=== PATIENT | male | born 1955 | race Caucasian/White ===

== ENCOUNTER → 2016-04-23 | Outpatient (CLI) | payer OTHER ==
[~2016-04-23] MED LIST: ASPI-664 PO; CARV12.579 PO; LISI20TA11 PO; MELO-110 PO
== END | disposition home or self-care (01) ==
LOC: HKI 08:54
PROVIDERS: ATTEND Orthopaedic Surgery
DX: M17.12 Unilateral primary osteoarthritis, left knee (principal); S72.302 Unspecified fracture of shaft of left femur; S82.102 Unspecified fracture of upper end of left tibia; X58.XXXD Exposure to other specified factors, subsequent encounter
CPT/HCPCS: G0463

== ENCOUNTER → 2016-06-16 | Outpatient (CLI) | payer OTHER ==
--- NOTE | 2016-06-16 14:13 | RADRPT ---
PROCEDURE: Limited x-ray of both lower extremities. CLINICAL INDICATION: Bilateral leg pain. TECHNIQUE: Single frontal view of both lower extremities was obtained from the hips to the calves. COMPARISON: 06/27/2015. 08/08/2015. FINDINGS: There is an intramedullary tc in the left femur which is fractured superiorly and migrated superior ly into the soft tissues adjacent to the left acetabulum. This is unchanged from 06/27/2015 and 07/26. There is an old healed fracture of the shaft of the femur. There is no new fracture. The hip s are otherwise unremarkable. There are severe degenerative changes of the left knee with joint spac e narrowing, osteophytes, and deformity. There are old healed fractures of the proximal shafts of th e left tibia and fibula. IMPRESSION: 1. Unchanged appearance of fractured tc in the left femoral shaft. 2. Healed fractures of the midshaft of the left femur, proximal left tibia, and proximal left fibula . 3. Severe degenerative changes of the left knee. 4. No change from 06/27/2015 and 08/08/2015. RPTAT: QQ .Lazarus Gomez MD, Date Time Electronically viewed and signed by .Lazarus Gomez MD, on 06/16/2016 14:12 .R/
== END | disposition home or self-care (01) ==
LOC: HKI 09:45
PROVIDERS: ATTEND Orthopaedic Surgery
DX: M25.562 Pain in left knee (principal); M17.12 Unilateral primary osteoarthritis, left knee; S72.302S Unspecified fracture of shaft of left femur, sequela
CPT/HCPCS: 77073; Z7500; G0463

== ENCOUNTER 2016-06-22 09:46 | Inpatient (IN) | payer MEDICARE, OTHER ==
[~2016-06-22] VITALS: Ht 157.5 cm; Wt 106.0 kg
[2016-06-22] VITALS (22 sets, daily range): BP systolic 135–177; BP diastolic 65–82; PULSE 55–94; RESP 16–22; Ht 157.5 cm; Wt 106.0 kg
[~2016-06-22 09:46] MED LIST changes: +BUPIVACAINE LIPOSOME/PF 266 MG/20 ML VIAL INFIL SCH; +CEFAZOLIN 1 GM INJ ONE; +CEFAZOLIN 2GM/50 ML (PMX) 50 ML X1 BEFORE INCISION IVPB SCH; +CELECOXIB 400 MG PO X1 DOSE PO SCH; +ETOMIDATE 20 MG INJ ONE; +EXPAREL NOTE (BUPIVICAINE LIPOSOMAL) XX SCH; +LACTATED RINGER'S 1,000 ML IV SCH; +PAIN COCKTAIL-CEFUROXIME IRR SCH; +PREGABALIN 300 MG PO X1 PO SCH; +SOD CHLORIDE 0.9% IV SCH; +SOD CHLORIDE 0.9% IVPB SCH; +SUCCINYLCHOLINE CHLORIDE 100 MG/5 ML SYG IV ONE; +TRANEXAMIC ACID IV SCH; +TRANEXAMIC ACID IVPB SCH; +oxyCODONE (CR) 10 MG TAB [oxyCONTIN] X1 DOSE PO SCH; +traMADOL 50 MG TAB X 1 DOSE PO SCH
[2016-06-22] MEDS ORDERED: OMEP20CA16 PO (10:32)
[2016-06-22] MEDS ORDERED: CARV12.598 PO (10:42)
[2016-06-22] MEDS ORDERED: DEXAMETHASONE 4 MG/ML 1 ML INJ ONE (11:19)
[2016-06-22] MEDS ORDERED: ONDANSETRON 4 MG INJ ONE (11:19)
[2016-06-22] MEDS ORDERED: CEFAZOLIN 1 GM INJ ONE (11:19)
[2016-06-22] MEDS ORDERED: PROPOFOL 100 ML ONE (11:19)
[2016-06-22] MEDS ORDERED: MIDAZOLAM 1 MG/ML 2 ML INJ ONE (11:19)
[2016-06-22] MEDS ORDERED: FENTAnyl 50 MCG/ML VIAL ONE ×2 (11:19→18:15)
[2016-06-22] MEDS ORDERED: PROPOFOL 0 ML ONE (11:19)
[2016-06-22] MEDS ORDERED: GLYCOPYRROLATE 0.4 MG INJ ONE (11:19)
[2016-06-22] MEDS ORDERED: NEOSTIGMINE 3 MG/3 ML SYRINGE ONE (11:19)
[2016-06-22] MEDS ORDERED: ROCURONIUM 50 MG INJ ONE (11:19)
--- NOTE | 2016-06-22 13:13 | HPN ---
Date/Time of Note Date/Time of Note DATE: 06/22/16 TIME: 13:12 Interval H&P Admission Note Pt. seen H&P reviewed: No system changes No change from H&P on 06/15/16 by ARMANDO Carmona MD Jun 22, 2016 13:13
--- NOTE | 2016-06-22 13:38 | OPR ---
Date/Time of Note Date/Time of Note DATE: 06/22/16 TIME: 13:37 Operative Report Free Text/Dictation Dictation # [id number] Procedure Date: Jun 22, 2016 Preoperative Diagnosis Left Hip OA Postoperative Diagnosis Same Operation Performed Left Anterior МАРИНА Surgeon: ARMANDO ALARCON MD purchasing assistant: CHIP BAKER PA-C Anesthesia: general, spinal Anesthesiologist: Nathan Blanca M.D. Estimated Blood Loss: 250 - 300 ml's Specimens Femoral Head Tubes/Drains Hemovac x 1 Complications: None Pt Condition Post Procedure: stable Disposition: PACU ARMANDO ALARCON MD Jun 22, 2016 13:38
[2016-06-22] MEDS ORDERED: CITRIC ACID/NA CITRATE 30 ML CUP ONE (13:47)
[2016-06-22] MEDS ORDERED: SODIUM CL BACTERIOSTATIC 30 ML INJ ONE (13:53)
[2016-06-22] MEDS ORDERED: POLYMYXIN B 500000 UNIT INJ ONE ×2 (13:53→13:54)
[2016-06-22] MEDS ORDERED: VANCOMYCIN 1 GM INJ ONE ×2 (13:54→15:21)
[2016-06-22] MEDS ORDERED: CITRIC ACID/NA CITRATE 30 ML CUP PO ONE (14:00)
[2016-06-22] MEDS ORDERED: TRIMETHOBENZAMIDE 100 MG/ML VIAL IM PRN (15:00)
[2016-06-22] MEDS ORDERED: DIPHENHYDRAMINE 50 MG INJ IV PRN (15:00)
[2016-06-22] MEDS ORDERED: HYDROmorphONE (0.2 MG/ML) 10ML SYG IV PRN ×3 (15:00)
[2016-06-22] MEDS ORDERED: MEPERIDINE 25 MG INJ IV PRN (15:00)
[2016-06-22] MEDS ORDERED: MIDAZOLAM 1 MG/ML 2 ML INJ IV PRN (15:00)
[2016-06-22] MEDS ORDERED: FENTAnyl 50 MCG/ML VIAL IV PRN ×3 (15:00)
[2016-06-22] MEDS ORDERED: ONDANSETRON 4 MG INJ IV PRN ×2 (15:00→19:30)
[2016-06-22] MEDS ORDERED: EPHEDrine SULFATE 50 MG/5 ML SYG IV PRN (15:00)
[2016-06-22] MEDS ORDERED: LABETALOL HCL 20MG INJ IV PRN (15:00)
[2016-06-22] MEDS ORDERED: hydrALAzine 20 MG INJ IV PRN (15:00)
[2016-06-22] MEDS ORDERED: BACITRACIN 50000 UNITS INJ ONE (15:03)
[2016-06-22] MEDS ORDERED: TOBRAMYCIN 1.2 GM POWDER ONE (15:21)
[2016-06-22] MEDS: VANCOMYCIN 1 GM INJ ONE ×2 (16:20→17:23)
--- NOTE | 2016-06-22 19:12 | PN ---
Date/Time of Note Date/Time of Note DATE: 06/22/16 TIME: 19:09 Assessment/Plan Lines/Catheters IV Catheter Type (from Nrsg): Peripheral IV Assessment/Plan Assessment/Plan Stable in PACU, s/p left hip hardware removal, left TKA -continue antibiotics -pain meds as needed -ASA/SCDs for DVT prophylaxis -OOB with PT -place towel roll behind ankle to ensure complete knee extension -check AM labs -monitor drain -d/c douglas in AM XR of the left knee and left hip are pending at this time Subjective 24 Hr Interval Summary Stable in PACU. Moving all extremities. Denies pain. Drowsy from anesthesia. Exam/Review of Systems Vital Signs Vitals Vital Signs Date Time Temp Pulse Resp B/P Pulse Ox O2 Delivery O2 Flow Rate FiO2 06/22/16 10:46 98.3 55 18 177/77 99 Room Air Exam Free Text/Dictation Hip: Dressing dry Incision clean, dry, and intact without redness or drainage 5/5 Quadriceps, Tibialis Anterior, EHL, Gastroc, Soleus, Peroneals Normal sensation Palpable DT/PT, CR <2 sec No distal edema Knee: Hemovac: minimal Dressing dry Incision clean, dry, and intact without redness or drainage Thigh soft 5/5 Quadriceps, Tibialis Anterior, EHL, Gastroc, Soleus, Peroneals Normal sensation Palpable DT/PT, CR <2 sec No distal edema CHIP BAKER PA-C Jun 22, 2016 19:12
[2016-06-22 19:23] LABS: HEMATOCRIT 40.6 % (42.0-52.0); HEMOGLOBIN 13.7 g/dl (14.0-18.0)
[2016-06-22] MEDS ORDERED: BISACODYL 10 MG SUPP PR PRN (19:30)
[2016-06-22] MEDS ORDERED: MAGNESIUM HYDROXIDE 30ML CUP PO PRN (19:30)
[2016-06-22] MEDS ORDERED: HYDROmorphONE 1 MG/ML SYG IV PRN (19:30)
[2016-06-22] MEDS ORDERED: ASPIRIN (EC) 325 MG TAB PO ONE (19:30)
[2016-06-22] MEDS ORDERED: NA PHOSPHATE/BIPHOS 133 ML ENEMA PR PRN (19:30)
[2016-06-22] MEDS ORDERED: DIPHENHYDRAMINE 25 MG CAP PO PRN (19:30)
[2016-06-22] MEDS ORDERED: NACL 0.9% 3 ML SYG IV SCH (19:30)
[2016-06-22] MEDS ORDERED: oxyCODONE 5 MG TAB PO PRN (19:30)
[2016-06-22] MEDS: CEFAZOLIN 2 GM/50 ML (PMX) 50 ML IVPB SCH (19:46)
[2016-06-22] MEDS: LACTATED RINGER'S 1,000 ML IV SCH (19:52)
[2016-06-22] MEDS ORDERED: hydrALAzine 20 MG INJ ONE (19:56)
[2016-06-22 20:12] LABS: CALCIUM 8.5 mg/dl (8.4-10.2); CREATININE 0.71 mg/dl (0.61-1.24); POTASSIUM 3.5 mmol/L (3.5-5.1)
--- NOTE | 2016-06-22 21:35 | OPR ---
Date/Time of Note Date/Time of Note DATE: 06/22/16 TIME: 21:34 Operative Report Free Text/Dictation Dictation # [id number] Procedure Date: Jun 22, 2016 Preoperative Diagnosis 1) Broken hardware left femur 2) Left Knee OA Postoperative Diagnosis Same Operation Performed 1) Removal of HW left femur 2) Left TKA Surgeon: ARMANDO ALARCON MD trust manager assistant: CHIP BAKER PA-C Anesthesia: general, spinal Anesthesiologist: Nathan Blanca M.D. Estimated Blood Loss: 150 - 200 ml's Specimens Bone and soft tissue Tubes/Drains Hemovac x 1 Complications: None Pt Condition Post Procedure: stable Disposition: PACU ARMANDO ALARCON MD Jun 22, 2016 21:35
[2016-06-22] MEDS: DOCUSATE SODIUM 100 MG CAP PO SCH (22:23)
[2016-06-22] MEDS: PREGABALIN 25 MG CAP PO SCH (22:23)
[2016-06-22] MEDS ORDERED: TRANEXAMIC ACID 1,060 MG in SOD CHLORIDE 0.9% 100 ML IVPB ONE (22:30)
--- NOTE | 2016-06-22 22:32 | OPR ---
DATE OF OPERATION: 06/22/2016 PREOPERATIVE DIAGNOSES: 1. Broken hardware, left femur, status post previous intramedullary nailing with malunited femur fr acture. 2. Left knee osteoarthritis. POSTOPERATIVE DIAGNOSES: 1. Broken hardware, left femur, status post previous intramedullary nailing with malunited femur fr acture. 2. Left knee osteoarthritis. PROCEDURES: 1. Removal of hardware, left femur. 2. Left total knee arthroplasty. SURGEON: Armando Isabel MD JUNIOR MECHANICAL ENGINEER: JORGE Bass COMPONENTS USED: DePuy Attune size 5 femoral component, size 6 tibial baseplate, 10 mm polyethylene insert, 38 patellar button. ANESTHESIA: Spinal plus general endotracheal intubation plus periarticular injection. ANESTHESIOLOGIST: Dr. Blanca. TOURNIQUET TIME: 111 minutes. ESTIMATED BLOOD LOSS: 150 mL. INTRAVENOUS FLUIDS: 3500 mL crystalloid. SPECIMENS: Bone and soft tissue. DRAINS: Hemovac x1. COMPLICATIONS: None. DISPOSITION: The patient tolerated the procedure well and was taken to the recovery room in stable condition. INDICATIONS: The patient is a 61-year-old gentleman who had a previous femur fracture treated with an intramedullary nailing at another hospital. He went on to develop a malunion of the femur with p roximal migration of the tip of the tc and the tc broke at the tip and remained prominent, impingi ng on his left hip. He also developed severe osteoarthritis of the left knee. He has had worsening pain despite nonsurgical means of treatment. I felt he would benefit from removal of the broken ro d and then a total knee arthroplasty. The risks, benefits, alternatives of the procedure were expla ined in detail to the patient. I explained the risks to include but not be limited to bleeding and possible need for blood transfusion, infection, pain, stiffness, neurovascular injury, possible numb ness, weakness, and/or paralysis anywhere from the knee down to the toes, fracture, instability, dis location, leg length inequality, wear and/or loosening of the prosthesis, need for revision at a lat er date, wound healing problems, blood clots, pulmonary embolism, and anesthetic complications such as heart attack, stroke, GI bleed, pneumonia, and/or . Ample time was allowed for the patient to ask questions, all of which were addressed and answered. The patient understood the risks involv ed and wished to proceed. Informed consent was signed prior to the procedure. DESCRIPTION OF PROCEDURE: The left hip and left knee were initialed with a marking pen in the preop erative holding area to identify the correct operative site. The patient was then brought to the op erating room and transferred from the [facility] to the operating table where he was administer ed a spinal anesthetic and then anesthetized and intubated. Time out was performed to confirm the l eft side was the correct operative site. The patient was then turned to lateral decubitus position with the left side up. An axillary roll was placed under the right chest wall. He was secured to the pegboard and all bony prominences were well padded. The patient was given 2 grams of intravenous Ancef within 1 hour mark or to the incision. Left hip and lower extremity were prepped and draped in usual sterile fashion. A posterolateral incision was made over the greater trochanter and carried down to subcutaneous tiss ue and fat with sharp dissection incorporating a small previous scar that was used to place the nail . This was carried down to subcutaneous tissue and fat with sharp dissection. The iliotibial band and gluteus jake muscle fascia were incised along the length of the wound and the gluteus jake muscle fibers were bluntly split. There was a bursal sac that had formed around the prominent port ion of the protruding tc, which was incised. The broken piece of the proximal tc was removed. I then followed this track to the piriformis fossa and used the rongeur to rongeur away some heterotop ic bone. Under C-arm imaging, I was able to place a threaded device into the tip of the tc and shashank kslap it out of the femur. At this point, the wound was irrigated with antibiotic saline. C-arm im aging confirmed that all the hardware had been removed and the proximal femur was intact. A small p ortion of the abductors was repaired back to the greater trochanter through drill holes with #2 Fibe rWire. The sciatic nerve was palpated and noted to be intact with no undue tension. The wound was irrigated with antibiotic saline pulsatile lavage. The iliotibial band was repaired with interrupte d #1 Ethibonds in a figure-of-8 fashion. The gluteus jake muscle fascia was repaired with a runn ing #1 Vicryl. The deep fat layer was irrigated and closed with 2-0 Stratafix and 3-0 Vicryl, and s taples on the skin. Skin edges were sealed with Dermabond. The wound was covered with silver Mepil ex. The patient was then kept intubated and turned to the supine position. Tourniquet was placed o n the left proximal thigh. The patient was given an additional gram of Ancef. The left knee and lo wer extremity were prepped and draped in usual sterile fashion. Left lower extremity was elevated and exsanguinated with the Esmarch tourniquet and the proximal thi gh tourniquet was inflated to 300 mmHg. The knee was flexed. A midline incision was made centered over the patella. The skin down to the subcutaneous tissue and fat with sharp dissection. Limited medial and lateral flaps were raised. Medial parapatellar arthrotomy was performed. Synovial fluid was normal in color and consistency. The patella was everted and the knee was flexed. A medial re lease was performed at the joint line to the midcoronal plane. There was severe osteoarthritis note d with complete loss of cartilage in the medial and patellofemoral compartments. At this point, the OrthAlign navigation device was brought up into the field and pinned into the distal femur. I felt that it would be in his best interest to use navigation, because it would be not possible to pass a n intramedullary guide up the femoral canal. The OrthAlign was pinned into place for a 3 degree fle xion cut and sagittal plans and 0 degrees of varus and valgus in the coronal plane. This was pinned into place to take 11 mm off distally. The oscillating saw was used to make the cut. Attention wa s then turned towards the proximal tibia, which was subluxed anteriorly. The lateral and medial men isci were removed. The ACL and PCL had been excised. There was noted to be a marked deformity of t he proximal tibia from previous malunited fracture in the proximal tibia, such that there was a disc repancy in terms of the rotation of the proximal articular aspect of the tibia relative to the ankle . The OrthAlign device was not be able to be used because to register the lateral and medial malleo li would not be possible with the rotational deformity present. Therefore, I elected to use an extr amedullary device. This was pinned into place proximally centered over the junction of the medial m iddle third of the tibial tubercle and then was brought over the anterior tibial crest. C-arm imagi ng confirmed it was centered over the ankle distally and in good alignment proximally. This was pin carlota into place and the oscillating saw was used to make the cut. I then sized the tibia to be a siz e 6. The flexion gap was checked and accommodated the 10 mm spacer block. At this point, the knee was flexed and 2 laminar spreaders were placed with the knee at 90 degrees of flexion. I checked th e rotation and the tibial guide was brought up and was in line with the transepicondylar axis, which was also perpendicular to Alfreda line. The femur was then sized to be a size [address] such that the holes were in line with the transepicondylar axis. I made the anterior, posteri or, and chamfer cuts with the oscillating saw. Flexion gap was checked and accommodated the 10 mm s pacer block. I felt the flexion and extension gaps were equal. The central box on the femur was cu t out. The trial size 5 femur was placed into the femur and a size 6 tibia with a 10 mm trial inser t was placed in position. The knee came to full extension as evidenced by the fact that with the fo ot on my abdomen and axial loading, there was no tendency for the knee to flex. The knee was able t o be flexed to 125 degrees. There was no varus or valgus instability. The patella tracked well. T here was no tilt or subluxation. At this point, the trials were removed. The tibia was drilled and punched in proper rotation. The patella had been cut from 25 mm down to 15 mm and sized and the 3 holes were drilled. With the patellar button in place, the patella tracked well. There was no tilt or subluxation. At this point, the trial components were removed. The real components were opened . Two bags of cement were mixed, one with and one without antibiotics mixed into it (vancomycin). The bony surfaces were irrigated and sucked dry. Once the cement was in a doughy stage, the real co mponents were cemented into place with a [address] The patellar component was cemented into place and held with a clamp. While the cement was drying, all excess cement was removed and t he soft tissues were infiltrated with a mixture of 0.5% bupivacaine, 4 mg Duramorph, 30 mg Toradol, clonidine, and 266 mg of liposomal bupivacaine as well cefuroxime. Once the cement was in a doughy stage, the trial liner was removed, and the tourniquet was let down. There was good hemostasis. Th e knee was irrigated with pulsatile lavage with antibiotic saline. Stimulan beads mixed with vancom ycin and tobramycin were then placed in the knee joint. The real polyethylene insert was opened and impacted into the tibia and reduced onto the femur. The knee was taken through range of motion and came to full extension and was able to be flexed to 125 degrees. The patella tracked well. There was no lateral tilt or subluxation. At this point, the instruments were removed. A Hemovac drain w as placed in the deep portion of the wound and brought out the anterolateral thigh. The arthrotomy was closed with interrupted #1 Ethibonds and a running #2 Stratafix. The knee flexion was checked a gainst gravity and came to 125 degrees. The subcutaneous layer was irrigated and closed with 2-0 St ratafix then 3-0 Vicryl and jerry on the skin. The drain was secured with 3-0 nylon. Sponge and needle counts were correct at the end of case. The wound was covered with silver Mepilex and wrappe d with sterile cast padding and an Vignesh wrap. The patient was awakened, extubated, and taken to the recovery room in stable condition. Dictated By: ARMANDO CHATMAN/KLEBER Conf#: [id number] DID#: [id number]
[2016-06-22] MEDS: ACETAMINOPHEN 1000MG/100ML IV 100 ML IVPB SCH (23:57)
[2016-06-22] MEDS: traMADol 50 MG TAB PO SCH (23:58)
[2016-06-23 00:07] VITALS: BP 120/59; RESP 18
[2016-06-23] MEDS ORDERED: TRANEXAMIC ACID 1,060 MG in SOD CHLORIDE 0.9% 100 ML IVPB ONE (01:30)
--- NOTE | 2016-06-23 01:53 | RADRPT ---
PROCEDURE: XR Knee. CLINICAL INDICATION: Postoperative for placement left knee arthroplasty. TECHNIQUE: AP and lateral views postoperative left knee was obtained. COMPARISON: 06/16/2016 bilateral AP weight bearing leg series. FINDINGS: Postoperative for placement of right knee arthroplasty, with placement of superior left knee joint c ompartment antibiotic impregnated radiopaque methylmethacrylate beads. Post surgical fluid is likely present over the knee. Post surgical drain is in place. No evident acute fracture. There is chronic/remote fracture at the proximal tibial metaphysis and m etadiaphysis, which appears healed. Remote fractures at the mid to distal femoral diaphysis and proximal tibial metaphysis are also seen . IMPRESSION: No evident hardware complication, with antibiotic impregnated radiopaque methylmethacrylate beads ov er the superior left knee joint compartment. RPTAT: [facility]U Physician Conor Date Time Electronically viewed and signed by Physician Conor on 06/23/2016 01:53 RS/
--- NOTE | 2016-06-23 01:55 | RADRPT ---
PROCEDURE: Pelvis x-ray CLINICAL INDICATION: Hardware failure involving tc fixator in the proximal left femur. TECHNIQUE: Single AP view of the pelvis performed. COMPARISON: Plain film pelvis dated 06/27/2015. FINDINGS: Previously seen fractured hardware fixator at the proximal left femur is removed over interval. Pos t surgical air and fluid are seen over the left hip region. There is again seen a well healed fract ure at the mid left femur diaphysis. IMPRESSION: Interval removal of fracture hardware fixator at the proximal left femur. RPTAT: UU Physician Conor Date Time Electronically viewed and signed by Physician Conor on 06/23/2016 01:55 RS/
--- NOTE | 2016-06-23 01:57 | RADRPT ---
PROCEDURE: XR Left Hip. CLINICAL INDICATION: Hardware failure involving tc fixator at the proximal left femur. TECHNIQUE: Single AP view of the left hip was performed. COMPARISON: 06/27/2015. FINDINGS: Interval removal of fractured hardware fixator at the proximal left femur. Healed fracture is seen at the mid shaft left femoral diaphysis. Post surgical air and fluid over the left hip. IMPRESSION: Interval removal of fractured hardware fixator at the proximal left femur. RPTAT: UU Physician Conor Date Time Electronically viewed and signed by Physician Conor on 06/23/2016 01:56 RS/
--- NOTE | 2016-06-23 02:02 | RADRPT ---
PROCEDURE: Fluoroscopy services CLINICAL INDICATION: Hardware failure at the left hip and femur, now for hardware removal. TECHNIQUE: Fluoroscopy services during removal of left hip and femur hardware fixator. COMPARISON: 06/27/2015. FINDINGS: Fluoroscopy services during removal of left hip and femur hardware fixator. 6 intraoperative spot fi lms were obtained at intermediate stages during this procedure and demonstrate removal of hardware f ixator. 0.3 minutes of fluoroscopy time were employed during this procedure. IMPRESSION: Fluoroscopy services during removal of left hip and femur hardware fixator. RPTAT: UU Physician Conor Date Time Electronically viewed and signed by Physician Conor on 06/23/2016 02:02 RS/
--- NOTE | 2016-06-23 02:05 | RADRPT ---
PROCEDURE: Fluoroscopy services CLINICAL INDICATION: Advanced degenerative changes in the left knee with remote fracture of the pr oximal left tibial metaphysis and metadiaphysis. TECHNIQUE: Fluoroscopy services during placement of left knee arthroplasty. COMPARISON: 06/27/2015. FINDINGS: Fluoroscopy services during placement of left knee arthroplasty. 8 intraoperative spot films were ob tained at intermediate stages during this procedure and demonstrate removal of hardware fixator heladio ersing the knees, localization instrumentation for placement of left knee arthroplasty. 0.8 minutes of fluoroscopy time were employed during this procedure. IMPRESSION: Fluoroscopy services during placement of left knee arthroplasty. RPTAT: UU Physician Conor Date Time Electronically viewed and signed by Physician Conor on 06/23/2016 02:05 RS/
[2016-06-23] MEDS: LACTATED RINGER'S 1,000 ML IV SCH ×3 (03:03→21:16)
[2016-06-23] MEDS: CEFAZOLIN 2 GM/50 ML (PMX) 50 ML IVPB SCH ×3 (03:31→21:17)
[2016-06-23 05:18] LABS: HEMATOCRIT 39.1 % (42.0-52.0); HEMOGLOBIN 13.3 g/dl (14.0-18.0)
[2016-06-23 05:29] LABS: POTASSIUM 4.1 mmol/L (3.5-5.1)
[2016-06-23 05:31] LABS: CREATININE 0.59 mg/dl (0.61-1.24)
[2016-06-23 05:32] LABS: CALCIUM 8.5 mg/dl (8.4-10.2)
[2016-06-23] MEDS: traMADol 50 MG TAB PO SCH ×4 (05:47→23:51)
[2016-06-23] MEDS: ACETAMINOPHEN 1000MG/100ML IV 100 ML IVPB SCH ×4 (05:47→23:51)
[2016-06-23] MEDS: PANTOPRAZOLE (EC) 40 MG TAB PO SCH ×2 (05:47→17:35)
[2016-06-23 07:59] VITALS: BP 101/53; RESP 16
[2016-06-23] MEDS: LISINOPRIL 20 MG TAB PO SCH ×2 (09:00→12:06)
--- NOTE | 2016-06-23 09:06 | PN ---
Date/Time of Note Date/Time of Note DATE: 06/23/16 TIME: 09:04 Assessment/Plan Lines/Catheters IV Catheter Type (from Nrsg): Peripheral IV Guzman in Place (from Nrsg): Yes Assessment/Plan Assessment/Plan Stable POD #1, s/p hardware removal left hip, left TKA -cont abx until drain removed (will plan to remove tomorrow) -pain meds as needed -ASA/SCDs for DVT prophylaxis -OOB with PT -check AM labs -monitor drain -d/c planning. Will plan to go home upon discharge Subjective 24 Hr Interval Summary No acute overnight events. Denies any knee pain. Having mild pain at the hip. VSS, afebrile. Will plan to go home upon discharge. Exam/Review of Systems Vital Signs Vitals Vital Signs Date Time Temp Pulse Resp B/P Pulse Ox O2 Delivery O2 Flow Rate FiO2 06/23/16 07:59 97.7 60 16 101/53 95 06/22/16 20:35 Nasal Cannula 2.0 Intake and Output 06/22/16 06/22/16 06/23/16 15:00 23:00 07:00 Intake Total 3950 ml 1550 ml Output Total 960 ml 1400 ml Balance 2990 ml 150 ml Exam Free Text/Dictation Hip: Dressing dry Incision clean, dry, and intact without redness or drainage 5/5 Quadriceps, Tibialis Anterior, EHL, Gastroc, Soleus, Peroneals Normal sensation Palpable DT/PT, CR <2 sec No distal edema Knee: Hemovac: 210cc Dressing dry Incision clean, dry, and intact without redness or drainage Thigh soft 5/5 Quadriceps, Tibialis Anterior, EHL, Gastroc, Soleus, Peroneals Normal sensation Palpable DT/PT, CR <2 sec No distal edema Results Result Diagram: 06/23/16 0440 06/23/16 0440 CHIP BAKER PA-C Jun 23, 2016 09:06
[2016-06-23] MEDS: ASPIRIN (EC) 325 MG TAB PO SCH ×2 (09:08→21:17)
[2016-06-23] MEDS: CELECOXIB 200 MG CAP PO SCH (09:08)
[2016-06-23] MEDS: PREGABALIN 25 MG CAP PO SCH (09:08)
[2016-06-23] MEDS: DOCUSATE SODIUM 100 MG CAP PO SCH ×2 (09:08→21:17)
[2016-06-23 09:59] LABS: ADD UMIC YES; URINE BILIRUBIN (Dip) NEGATIVE (NEGATIVE); URINE BLOOD (Dip) 2+ (NEGATIVE); URINE COLOR LT. YELLOW (YELLOW); URINE GLUCOSE (Dip) NEGATIVE (NEGATIVE); URINE KETONES (Dip) NEGATIVE (NEGATIVE); URINE LEUKOCYTE ESTERASE (Dip) 1+ (NEGATIVE); URINE NITRITE (Dip) NEGATIVE (NEGATIVE); URINE TOTAL PROTEIN (Dip) NEGATIVE (NEGATIVE); URINE UROBILINOGEN (Dip) 0.2 E.U./dL (0.1-1.0)
[2016-06-23 10:18] LABS: BACTERIA,URINE OCCASIONAL
[2016-06-23 21:00] VITALS: BP 104/59; RESP 20
[2016-06-23] MEDS: PREGABALIN 50 MG CAP PO SCH (21:20)
[2016-06-24] MEDS: LACTATED RINGER'S 1,000 ML IV SCH ×4 (03:03→19:03)
[2016-06-24 05:28] LABS: HEMATOCRIT 33.3 % (42.0-52.0)
[2016-06-24] MEDS: PANTOPRAZOLE (EC) 40 MG TAB PO SCH ×2 (05:45→17:25)
[2016-06-24] MEDS: traMADol 50 MG TAB PO SCH ×4 (05:45→23:53)
[2016-06-24] MEDS: CEFAZOLIN 2 GM/50 ML (PMX) 50 ML IVPB SCH ×2 (05:45→17:24)
[2016-06-24 06:02] LABS: CALCIUM 7.9 mg/dl (8.4-10.2); CREATININE 0.74 mg/dl (0.61-1.24); POTASSIUM 3.8 mmol/L (3.5-5.1)
[2016-06-24 08:21] VITALS: BP 118/61; RESP 18
[2016-06-24] MEDS: ASPIRIN (EC) 325 MG TAB PO SCH ×2 (08:49→21:00)
[2016-06-24] MEDS: DOCUSATE SODIUM 100 MG CAP PO SCH ×2 (08:50→21:00)
[2016-06-24] MEDS: CELECOXIB 200 MG CAP PO SCH (08:50)
[2016-06-24] MEDS: PREGABALIN 50 MG CAP PO SCH ×2 (08:50→21:00)
[2016-06-24] MEDS: LISINOPRIL 20 MG TAB PO SCH (08:52)
--- NOTE | 2016-06-24 18:16 | PN ---
Date/Time of Note Date/Time of Note DATE: 06/24/16 TIME: 18:15 Assessment/Plan Lines/Catheters IV Catheter Type (from Nrsg): Saline Lock Guzman in Place (from Nrsg): No Assessment/Plan Assessment/Plan Stable POD #2, s/p hardware removal left hip, left TKA -d/c abx -pain meds as needed -ASA/SCDs for DVT prophylaxis -OOB with PT -check AM labs -drain removed -dressing changed -will likely go home tomorrow Subjective 24 Hr Interval Summary No acute overnight events. Denies knee pain but complaining of mild hip pain. Progressing well with PT. Will likely go home tomorrow. Exam/Review of Systems Vital Signs Vitals Vital Signs Date Time Temp Pulse Resp B/P Pulse Ox O2 Delivery O2 Flow Rate FiO2 06/24/16 08:21 97.8 60 18 118/61 96 06/22/16 20:35 Nasal Cannula 2.0 Intake and Output 06/23/16 06/23/16 06/24/16 15:00 23:00 07:00 Intake Total 3660 ml 1500 ml Output Total 1300 ml Balance 3660 ml 200 ml Exam Free Text/Dictation Hip: Dressing dry Incision clean, dry, and intact without redness or drainage 5/5 Quadriceps, Tibialis Anterior, EHL, Gastroc, Soleus, Peroneals Normal sensation Palpable DT/PT, CR <2 sec No distal edema Hemovac: 100cc Dressing dry Incision clean, dry, and intact without redness or drainage Thigh soft 5/5 Quadriceps, Tibialis Anterior, EHL, Gastroc, Soleus, Peroneals Normal sensation Palpable DT/PT, CR <2 sec No distal edema Results Result Diagram: 06/24/160 06/24/16419 CHIP BAKER PA-C Jun 24, 2016 18:16
--- NOTE | 2016-06-24 18:21 | PDOCDIS ---
Discharge Instructions DIAGNOSIS Discharge Diagnosis: s/p left TKA, left hip hardware removal CONDITION Patient Condition: Good HOME CARE INSTRUCTIONS: Diet Instructions: Regular ACTIVITY: Activity Restrictions: Slowly Increase Activity Rest between Activity Avoid heavy lifting Do not operate Machinery Do not operate Power Tool Avoid Heavy Housework Keep Limb Elevated Bathing Restrictions: Shower FOLLOW UP/APPOINTMENTS Appointments follow up in the office on 07/02/16 OTHER ORDERS: Other Orders: S/P TKA Physical Therapy: Three times per week at home x 2 weeks Daily in Rehab/SNF WB STATUS: WBAT 1. Strengthening exercises for both upper and un-operated lower extremities. 2. Gait training with front wheeled walker 3. Active range of motion exercises to operative knee. 4. When not working on knee range of motion exercises, distal towel roll under operative ankle/distal calf to promote full extension. 5. DO NOT PUT ANYTHING BEHIND OPERATIVE KNEE!!! 6. Quadriceps and hamstring strengthening. 7. May switch to cane in contra lateral hand 6 weeks after surgery. 8. Physical Therapy can open case if nursing is not available. 9. Use Ice Machine as instructed from date of surgery while at rest 3X/day. 10. Patient requires mobile SCDs to reduce risk of developing DVT following TKA. Patient will use the mobile SCDs for 30 days postoperatively. Bathing assistance by home health aide twice weekly if Medicare patient. Occupational Therapy: Evaluation for assistive devices and ADL training. Wound Care: Keep incision dry & covered with Tegaderm until first visit with Dr. Isabel Anticoagulation Orders: Enteric Coated Aspirin 325 mg po bid x 6 weeks from date of surgery Follow-up:Call for an appointment with Dr. Isabel in 1 week after discharged from hospital at DME Orders: FWMini, 3-in-1 Commode, Polar ice machine, Mobile SCDs CHIP BAKER PA-C Jun 24, 2016 18:21
[2016-06-24] MEDS ORDERED: TRAM50TA2 PO (18:22)
[2016-06-24] MEDS ORDERED: HYDR-905 PO (18:22)
[2016-06-24] MEDS ORDERED: ASPI325T32 PO (18:22)
[2016-06-24] MEDS: oxyCODONE 5 MG TAB PO PRN (21:03)
[2016-06-24 21:30] VITALS: BP 146/72; RESP 20
[2016-06-25] MEDS: LACTATED RINGER'S 1,000 ML IV SCH ×2 (03:03→11:03)
[2016-06-25 05:01] LABS: HEMATOCRIT 35.8 % (42.0-52.0); HEMOGLOBIN 12.1 g/dl (14.0-18.0)
[2016-06-25 05:11] LABS: POTASSIUM 3.9 mmol/L (3.5-5.1)
[2016-06-25 05:14] LABS: CREATININE 0.78 mg/dl (0.61-1.24)
[2016-06-25 05:15] LABS: CALCIUM 8.7 mg/dl (8.4-10.2)
[2016-06-25] MEDS: PANTOPRAZOLE (EC) 40 MG TAB PO SCH (05:33)
[2016-06-25] MEDS: traMADol 50 MG TAB PO SCH ×2 (05:34→12:00)
[2016-06-25 07:49] VITALS: BP 132/72; RESP 18
--- NOTE | 2016-06-25 09:10 | PN ---
Date/Time of Note Date/Time of Note DATE: 06/25/16 TIME: 09:08 Assessment/Plan Lines/Catheters IV Catheter Type (from Nrsg): Saline Lock Guzman in Place (from Nrsg): No Assessment/Plan Assessment/Plan Stable POD #3, s/p hardware removal left hip, left TKA -pain meds as needed -ASA/SCDs for DVT prophylaxis -OOB with PT -dressing changed -discharge home today -follow up in the office in 1 week Subjective 24 Hr Interval Summary No acute overnight events. Mild knee pain. VSS, afebrile. Will plan to discharge home today. Exam/Review of Systems Vital Signs Vitals Vital Signs Date Time Temp Pulse Resp B/P Pulse Ox O2 Delivery O2 Flow Rate FiO2 06/25/16 07:49 98.5 62 18 132/72 100 06/22/16 20:35 Nasal Cannula 2.0 Intake and Output 06/24/16 06/24/16 06/25/16 15:00 23:00 07:00 Intake Total 1530 ml 480 ml Output Total 1450 ml 1300 ml Balance 80 ml -820 ml Exam Free Text/Dictation KNEE/HIP: Dressing dry Incision clean, dry, and intact without redness or drainage Thigh soft 5/5 Quadriceps, Tibialis Anterior, EHL, Gastroc, Soleus, Peroneals Normal sensation Palpable DT/PT, CR <2 sec No distal edema Results Result Diagram: 06/25/1642906/25/16429 CHIP BAKER PA-C Jun 25, 2016 09:10
[2016-06-25] MEDS: PREGABALIN 50 MG CAP PO SCH (10:02)
[2016-06-25] MEDS: DOCUSATE SODIUM 100 MG CAP PO SCH (10:02)
[2016-06-25] MEDS: ASPIRIN (EC) 325 MG TAB PO SCH (10:02)
[2016-06-25] MEDS: CELECOXIB 200 MG CAP PO SCH (10:02)
[2016-06-25] MEDS: oxyCODONE 5 MG TAB PO PRN (10:03)
[2016-06-25] MEDS: LISINOPRIL 20 MG TAB PO SCH (10:03)
--- NOTE | 2016-06-25 13:49 | DS ---
DATE OF ADMISSION: 06/22/2016 DATE OF DISCHARGE: 06/25/2016 CONDITION UPON DISCHARGE: Stable ADMITTING DIAGNOSES: 1. Left knee osteoarthritis. 2. Painful hardware removal, left hip. DISCHARGE DIAGNOSES: 1. Status post hardware removal, left hip. 2. Left Total knee arthroplasty. PROCEDURES PERFORMED: 1. Hardware removal of the left hip 2. left total knee arthroplasty. HOSPITAL COURSE: This is a 61-year-old male who was seen in the clinic initially complaining of both left hip and knee pain. X-rays of both areas were obtained and demonstrated advanced osteoarthritis of the left knee, as well as an old left femur fracture that required intramedullary rodding. The hardware was noted to be broken along the proximal third and displaced, and it was thought he would benefit from hardware removal of the left hip as well as a left total knee arthroplasty. On 06/22/2016, the patient was taken to the operating room where he underwent a left total knee arthroplasty and hardware removal of the left hip/femur. There were no intraoperative complications. The patient tolerated the procedure well. He was taken to the recovery room in stable condition. Pain was well controlled with oral pain medication. He was started on aspirin and SCDs for DVT prophylaxis. He remained hemodynamically stable and neurovascularly intact throughout his hospital stay. He began physical therapy on postoperative day #1 and was deemed stable for discharge on postoperative day #3. Prior to discharge, the incision was inspected and noted to be clean, dry and intact. Dressing changes were done prior to patient going home. LABORATORY ANALYSIS: Hemoglobin 12.1, hematocrit 35.8. Chemistry panel was within normal limits. DISCHARGE MEDICATIONS: 1. [place] 7.5/325 mg. 2. Tramadol 50 mg. 3. Aspirin 325 mg. In addition, the patient is to resume all his normal home medications. DISCHARGE INSTRUCTIONS: The patient will be discharged home in stable condition. He is to resume a normal diet. Activity includes weightbearing as tolerated on the left lower extremity. Continue physical therapy with home health. He will be discharged home with the medications noted above and is to resume all normal home medication. He is to call the office or go to the emergency room for any concerns including increased redness, swelling, drainage , fever or any concerns regarding the operation or site of incision. FOLLOWUP: The patient is to follow up in the office with Dr. Isabel on 2016. Dictated By: CHIP BAKER PA for [facility] CASTAN[facility]/KLEBER Conf#: [id number] DID#: [id number] MTDD
== END 2016-06-25 13:50 | disposition home or self-care (01) | DRG 470 ==
LOC: REC 09:46 → EDSTATUS 12:30 → MS1 21:15
PROVIDERS: ADMIT Orthopaedic Surgery; ATTEND Orthopaedic Surgery
PROC: 0SRD0J9 Replacement of Left Knee Joint with Synthetic Substitute, Cemented, Open Approach (ICD-10-PCS; principal; 2016-06-22 13:00)
PROC: 0QP704Z Removal of Internal Fixation Device from Left Upper Femur, Open Approach (ICD-10-PCS; 2016-06-22 13:00)
DX: M17.12 Unilateral primary osteoarthritis, left knee (principal); T84.115A Breakdown (mechanical) of internal fixation device of left femur, initial encounter; I10 Essential (primary) hypertension; S72.002P Fracture of unspecified part of neck of left femur, subsequent encounter for closed fracture with malunion; I25.10 Atherosclerotic heart disease of native coronary artery without angina pectoris; Y83.8 Other surgical procedures as the cause of abnormal reaction of the patient, or of later complication, without mention of misadventure at the time of the procedure
CPT/HCPCS: 72170; 73500; 73550; 73560; 73590; 80048; 81001; 81003; 85014; 85018; 86850; 86900; 86901; 86920; 87081; 87086; 88300; 88304; 88311; 97110; 97116; 97162; 97166; 97530; Z7610; C1713; C1776; C9290; J0131; J0171; J0330; J0360; J0690; J0697; J0735; J1100; J1170; J1885; J2250; J2274; J2405; J2710; J3010; J3370; J7120

== ENCOUNTER → 2016-07-02 | Outpatient (CLI) | payer OTHER ==
[~2016-07-02] MED LIST changes: -ASPI-664 PO; +ASPI325T32 PO; -BUPIVACAINE LIPOSOME/PF 266 MG/20 ML VIAL INFIL SCH; -CARV12.579 PO; +CARV12.598 PO; -CEFAZOLIN 1 GM INJ ONE; -CEFAZOLIN 2GM/50 ML (PMX) 50 ML X1 BEFORE INCISION IVPB SCH; -CELECOXIB 400 MG PO X1 DOSE PO SCH; -ETOMIDATE 20 MG INJ ONE; -EXPAREL NOTE (BUPIVICAINE LIPOSOMAL) XX SCH; +HYDR-905 PO; -LACTATED RINGER'S 1,000 ML IV SCH; -MELO-110 PO; +OMEP20CA16 PO; -PAIN COCKTAIL-CEFUROXIME IRR SCH; -PREGABALIN 300 MG PO X1 PO SCH; -SOD CHLORIDE 0.9% IV SCH; -SOD CHLORIDE 0.9% IVPB SCH; -SUCCINYLCHOLINE CHLORIDE 100 MG/5 ML SYG IV ONE; +TRAM50TA2 PO; -TRANEXAMIC ACID IV SCH; -TRANEXAMIC ACID IVPB SCH; -oxyCODONE (CR) 10 MG TAB [oxyCONTIN] X1 DOSE PO SCH; -traMADOL 50 MG TAB X 1 DOSE PO SCH
--- NOTE | 2016-07-02 11:33 | HKNOTE ---
DATE OF SERVICE: 07/02/2016 INTERVAL HISTORY: The patient presents today for his first postoperative evaluation. He is now 10 days status post left total knee arthroplasty and left hip hardware removal. He is doing well overall. He does have some knee pain and swelling. He has begun physical therapy at home. He is taking aspirin twice daily for DVT prophylaxis. He is ambulating using a front-wheel walker. He has been taking the pain medication as recommended and prescribed. He presents today for his first postoperative evaluation. PHYSICAL EXAMINATION: Today, he is alert and oriented x4 and in no acute distress. He is ambulating with a front-wheel walker. Exam of the left knee incision demonstrates it to be clean, dry and intact. There is some mild soft tissue swelling. There is no erythema or warmth. The incision is clean, dry and well healing. Range of motion is 0-90 degrees. Varus and valgus forces are stable. Homans sign is negative. Compartments are soft. He is neurovascularly intact distally. Hip exam of the left hip demonstrates the incision to be clean, dry and intact. It is well healing. [place] are in place. There is no erythema, warmth or drainage noted. There is no significant soft tissue swelling. Neurovascular status is intact distally. IMAGING: X-rays of the left knee were obtained today and reviewed by me. They demonstrate good anatomic alignment of the prosthesis with no fracture or dislocation identified. ASSESSMENT: Ten days status post left total knee arthroplasty and left hip hardware removal. PLAN: The jerry were removed today for both left hip and left knee and Steri- Strips were applied to both areas. The patient is to continue taking the pain medicine as needed. He is also to continue aspirin twice daily for DVT prophylaxis for a period of 6 weeks. He began physical therapy on an outpatient basis as tolerated. We will see him back in 4 weeks for repeat evaluation. He should call the office in the meantime if there are any concerns. Dictated By: CHIP PATEL for [facility] CASTANEDA/KLEBER Conf#: [id number] DID#: [id number] MTDD
--- NOTE | 2016-07-02 16:29 | RADRPT ---
PROCEDURE: XR Left Hip. CLINICAL INDICATION: Left hip pain. TECHNIQUE: Two views. Frontal and lateral. COMPARISON: 06/22/2016. FINDINGS: There is no acute fracture. There is no dislocation. There is an old healed fracture of the proxim al to mid shaft of the femur with satisfactory alignment. Left lateral skin jerry have been removed. Articular surfaces are intact. There is no lytic or blastic lesion. There is no radiopaque foreign body. IMPRESSION: 1. Old healed fracture of the proximal to mid shaft of the left femur. 2. Lateral skin jerry removed. RPTAT: QQ .Lazarus Gomez MD, MD Date Time Electronically viewed and signed by .Lazarus Gomez MD, MD on 07/02/2016 16:29 .R/
--- NOTE | 2016-07-02 16:30 | RADRPT ---
PROCEDURE: XR Left Knee. CLINICAL INDICATION: Left knee pain. Postop. TECHNIQUE: Two views. Frontal and lateral. COMPARISON: 06/22/2016. FINDINGS: There is an old healed fracture of the midshaft of the left femur. There is no acute fracture. Anterior skin jerry and surgical drain have been removed. There is a total left knee arthroplasty which appears satisfactory. There is no lytic or blastic lesion. There is no joint effusion. IMPRESSION: 1. Satisfactory postoperative appearance of the left knee. 2. Old healed fracture of the midshaft of the left femur. RPTAT: QQ .Lazarus Gomez MD, MD Date Time Electronically viewed and signed by .Lazarus Gomez MD, MD on 07/02/2016 16:30 .R/
== END | disposition home or self-care (01) ==
LOC: HKI 09:14
PROVIDERS: ATTEND Orthopaedic Surgery
DX: Z47.1 Aftercare following joint replacement surgery (principal); Z96.652 Presence of left artificial knee joint
CPT/HCPCS: 73502

== ENCOUNTER → 2016-07-28 | Outpatient (CLI) | payer MEDICARE, OTHER | END | disposition home or self-care (01) | LOC: HKI 09:15 | PROVIDERS: ATTEND Orthopaedic Surgery | DX: Z47.1 Aftercare following joint replacement surgery (principal); M17.12 Unilateral primary osteoarthritis, left knee; Z96.652 Presence of left artificial knee joint ==

== ENCOUNTER → 2016-09-20 | Outpatient (CLI) | payer MEDICARE, OTHER ==
--- NOTE | 2016-09-20 15:14 | RADRPT ---
PROCEDURE: XR Left Hip. CLINICAL INDICATION: Left hip pain. TECHNIQUE: Two views. Frontal and lateral. COMPARISON: 07/02/2016. FINDINGS: There is no fracture or dislocation. The soft tissues are normal. The articular surfaces are intact. There has been prior surgery with the tract from a tc in the sh aft of the femur which has been removed. There is a healed fracture of the shaft of the femur. There is no lytic or blastic lesion. There is no radiopaque foreign body. IMPRESSION: 1. Healed fracture of the shaft of the femur and a tract from a removed tc in the shaft of the fem ur. 2. Otherwise unremarkable images of the left hip. RPTAT: QQ .Lazarus Gomez MD, MD Date Time Electronically viewed and signed by .Lazarus Gomez MD, on 09/20/2016 15:13 .R/
--- NOTE | 2016-09-20 15:15 | RADRPT ---
PROCEDURE: XR Left Knee. CLINICAL INDICATION: Left knee pain. TECHNIQUE: Two views. Frontal and lateral. COMPARISON: 07/02/2016. FINDINGS: There are old healed fractures of the shaft of the femur and proximal shaft of the tibia. There is no acute fracture or dislocation. The soft tissues are normal. There is a total left knee arthroplasty which appears satisfactory. There is no lytic or blastic lesion. There is no joint effusion. IMPRESSION: 1. Satisfactory postoperative appearance of the left knee. 2. Old healed fractures of the femur and tibia. RPTAT: QQ .Lazarus Gomez MD, MD Date Time Electronically viewed and signed by .Lazarus Gomez MD, on 09/20/2016 15:15 .R/
== END | disposition home or self-care (01) ==
LOC: HKI 08:31
PROVIDERS: ATTEND Orthopaedic Surgery
DX: Z47.1 Aftercare following joint replacement surgery (principal); M17.12 Unilateral primary osteoarthritis, left knee; Z96.652 Presence of left artificial knee joint
CPT/HCPCS: 73502